=== PATIENT | female | born 1960 | race Caucasian/White ===

== ENCOUNTER 2019-10-26 09:38 | Emergency (ER) | payer SELFPAY ==
[~2019-10-26] VITALS: Ht 160 cm; Wt 71.7 kg
[2019-10-26 09:45] VITALS: BP 114/67
[2019-10-26 10:24] LABS: BASOPHILS % (AUTO) 0.6 % (0-1); EOSINOPHILS # (AUTO) 0.1 X10'3 (0-0.9); EOSINOPHILS % (AUTO) 1.3 % (0-6); HEMATOCRIT 38.5 % (35.0-45.0); LYMPHOCYTES % (AUTO) 32.3 % (21-51); MEAN CORPUSCULAR HEMOGLOBIN 29.8 PG (27.0-31.0); MEAN CORPUSCULAR HGB CONC 33.7 g/dL (33.0-36.5); MEAN CORPUSCULAR VOLUME 88.3 FL (78-98); MONOCYTES # (AUTO) 0.6 X10'3 (0-0.9); MONOCYTES % (AUTO) 9.3 % (2-12); NEUTROPHILS # (AUTO) 3.6 X10'3 (1.8-7.7); NEUTROPHILS % (AUTO) 56.5 % (42-75); PLATELET COUNT 318 X10'3 (140-440); RED BLOOD COUNT 4.36 X10'6 (4.20-5.60); WHITE BLOOD COUNT 6.3 X10'3 (4.5-11.0)
[2019-10-26] MEDS ORDERED: sucralfate 1 gm tablet PO ONE (10:35)
[2019-10-26] MEDS ORDERED: LIDOcaine Viscous 15ml cup MM ONE (10:35)
[2019-10-26] MEDS ORDERED: mag hydrox/Alum hydrox/simeth 30ml oral suspension PO ONE (10:35)
[2019-10-26 10:37] LABS: ALANINE AMINOTRANSFERASE 52 U/L (12-78); ALBUMIN 3.9 G/DL (3.4-5.0); ALBUMIN/GLOBULIN RATIO 1.1 (1.1-1.5); ALKALINE PHOSPHATASE 76 IU/L (46-116); ANION GAP 6 (8-16); ASPARTATE AMINO TRANSFERASE 34 U/L (10-37); BILIRUBIN,TOTAL 0.3 MG/DL (0.1-1.0); BLOOD UREA NITROGEN 15 MG/DL (7-18); BUN/CREATININE RATIO 16.9 (6.6-38.0); CALCIUM 8.5 MG/DL (8.5-10.1); CHLORIDE 108 MMOL/L (99-107); CREATININE 0.89 MG/DL (0.40-0.90); GLUCOSE 98 MG/DL (70-104); POTASSIUM 3.5 MMOL/L (3.5-5.1); SODIUM 143 MMOL/L (135-145); TOTAL PROTEIN 7.6 G/DL (6.4-8.2); eGFR 65 ML/MIN
[2019-10-26] MEDS ORDERED: PANT20TA2 PO (11:00)
== END 2019-10-26 11:28 | disposition home or self-care (01) ==
LOC: ER 09:40
DX: R10.13 Epigastric pain (principal); R07.89 Other chest pain; Z79.899 Other long term (current) drug therapy
CPT/HCPCS: 36415; 71045; 80053; 84484; 85025; 93005; 99284

== ENCOUNTER 2025-03-18 07:36 | Emergency (ER) | payer MEDICARE ==
[~2025-03-18] VITALS: Ht 160 cm; Wt 73.3 kg
[~2025-03-18 07:36] MED LIST: PANT20TA2 PO
--- NOTE | 2025-03-18 07:48 | ELECTROCARDIOGRAPH REPORT ---
[facility] Test Date: 2025-03-18 Test Time: 07:46:43 Pat Name: DEVIKA MORROW Department: [facility] Patient ID: [facility]-[id number] Room: Gender: F [employer] Operator: : 1960 Requested By: LILIBETH SPRINGER Order Number: [id number] Reading MD: Dr. Venkata Godwin Measurements Intervals [place] Rate: 74 P: 57 MS: 167 QRS: 4 QRSD: 110 T: 26 QT: 418 QTc: 464 Interpretive Statements Sinus rhythm Low voltage, precordial leads RSR' in V1 or V2, right VCD or RVH Borderline T abnormalities, lateral leads Electronically Signed On 03-21-2025 19:04:[address] Venkata Godwin Please click the below link to view image of tracing.
[2025-03-18 08:09] LABS: BASOPHILS # (AUTO) 0.1 X10'3 (0-0.2); BASOPHILS % (AUTO) 0.8 % (0-1); EOSINOPHILS # (AUTO) 0.2 X10'3 (0-0.9); EOSINOPHILS % (AUTO) 2.4 % (0-6); HEMOGLOBIN 13.1 g/dl (12.0-16.0); LYMPHOCYTES # (AUTO) 2.6 X10'3 (1.1-4.8); LYMPHOCYTES % (AUTO) 37.4 % (21-51); MEAN CORPUSCULAR HGB CONC 33.6 g/dL (33.0-36.5); MEAN CORPUSCULAR VOLUME 86.4 FL (78-98); MEAN PLATELET VOLUME 6.9 FL (7.4-10.4); MONOCYTES # (AUTO) 0.8 X10'3 (0-0.9); MONOCYTES % (AUTO) 11.5 % (2-12); NEUTROPHILS # (AUTO) 3.3 X10'3 (1.8-7.7); NEUTROPHILS % (AUTO) 47.9 % (42-75); PLATELET COUNT 351 X10'3 (140-440); RED BLOOD COUNT 4.51 X10'6 (4.20-5.60); WHITE BLOOD COUNT 6.9 X10'3 (4.5-11.0)
[2025-03-18 08:23] LABS: ALANINE AMINOTRANSFERASE 32 U/L (12-78); ALBUMIN 3.9 G/DL (3.4-5.0); ALBUMIN/GLOBULIN RATIO 1.1 (1.1-1.5); ALKALINE PHOSPHATASE 93 IU/L (46-116); ANION GAP 6 (8-16); ASPARTATE AMINO TRANSFERASE 23 U/L (10-37); BILIRUBIN,TOTAL 0.4 MG/DL (0.1-1.0); BLOOD UREA NITROGEN 13 MG/DL (7-18); BUN/CREATININE RATIO 15.9 (10.0-20.0); CALCIUM 8.7 MG/DL (8.5-10.1); CHLORIDE 106 MMOL/L (99-107); CREATININE 0.82 MG/DL (0.40-0.90); GLUCOSE 118 MG/DL (70-104); SODIUM 140 MMOL/L (135-145); TOTAL CARBON DIOXIDE 28.3 MMOL/L (24-32); TOTAL PROTEIN 7.3 G/DL (6.4-8.2); eCRCL 56 ML/MIN; eGFR 70 ML/MIN
[2025-03-18 08:30] LABS: PRO BRAIN NATRIURETIC PEPTIDE < 30 PG/ML (0-125)
--- NOTE | 2025-03-18 08:35 | RADIOLOGY REPORT ---
CHEST RADIOGRAPH Indication: CP Technique: Single frontal view of the chest was obtained COMPARISON: None FINDINGS: Lines and Tubes: None Lungs: Clear Pleura: No effusion. No pneumothorax. Cardiomediastinal contours: Unremarkable Bones: Unremarkable IMPRESSION: No acute disease.
[2025-03-18 08:46] VITALS: BP 126/80; PULSE 76; RESP 13; TEMP 98.7; O2SAT 97
--- NOTE | 2025-03-18 08:56 | Physician Documentation ---
History of Present Illness ~ Chief Complaint: Palpitations Stated Complaint: PALPATATIONS Time Seen by MD: 07:52 Mode of Arrival: POV HPI 65 year old female with palpitations for several days, intermittently and at different times of day. Also accompanied by some chest heaviness. Denies fever, cough, N/V/D, urinary symptoms, cardiac history, smoking history, DVT/PE history. Medication Reconciliation Allergies: Coded Allergies: No Known Allergies (Unverified , 10/26/19) Scheduled Pantoprazole Sodium (Protonix), 1 TAB PO DAILY Past Medical History Past Medical History: No Pertinent History Past Surgical History: noncontributory Alcohol Use: None Lives In: Home Review of Systems All Other Systems at this time: Reviewed and Negative Physical Exam Vital Signs: RN Vital Signs have been reviewed: Yes, Temperature: 98.7, Source: Oral, Heart Rate: 76, Respiratory Rate: 13, BP: 126/80, Pulse Oximetry: 97, Weight: 73.300 Oxygen Flow Rate: 0 Physical Exam HEENT: PERRL, moist oral mucosa, EOMI Pulmonary: No respiratory distress CTAB Cardiac: RRR, no murmur, rub or gallop MSK: no deformity Skin: w/d/i, no rash Neuro: alert, nonfocal Psych: normal affect Progress Results/Orders Results/Orders Orders - LILIBETH SPRINGER MD Chest,Single View (03/18/25 07:42) Monitor (03/18/25 07:42) Saline Lock (03/18/25 07:42) Oxygen (03/18/25 07:42) Completed Orders - LILIBETH SPRINGER MD Electrocardiogram (03/18/25 07:37) Chest,Single View (03/18/25 07:42) Cbc/Diff (03/18/25 07:42) PBNP (03/18/25 07:42) CMP (03/18/25 07:42) Hs Troponin I W Calculations (03/18/25 07:42) Vital Signs 03/18/25 03/18/25 03/18/25 07:40 07:57 08:46 Temp 98.7 98.7 Pulse 74 76 Resp 16 12 13 B/P (MAP) 132/84 126/80 (95) Pulse Ox 99 97 O2 Flow Rate 0 0 Laboratory Tests Test 03/18/25 07:54 03/18/25 07:57 White Blood Count 6.9 Red Blood Count 4.51 Hemoglobin 13.1 Hematocrit 39.0 Mean Corpuscular Volume 86.4 Mean Corpuscular Hemoglobin 29.0 Mean Corpuscular Hemoglobin Concent 33.6 Red Cell Distribution Width 15.0 H Platelet Count 351 Mean Platelet Volume 6.9 L Neutrophils (%) (Auto) 47.9 Lymphocytes (%) (Auto) 37.4 Monocytes (%) (Auto) 11.5 Eosinophils (%) (Auto) 2.4 Basophils (%) (Auto) 0.8 Neutrophils # (Auto) 3.3 Lymphocytes # (Auto) 2.6 Monocytes # (Auto) 0.8 Eosinophils # (Auto) 0.2 Basophils # (Auto) 0.1 CBC Comment Troponin I High Sensitivity 5 Sodium Level 140 Potassium Level 4.0 Chloride Level 106 Carbon Dioxide Level 28.3 Anion Gap 6 L Blood Urea Nitrogen 13 Creatinine 0.82 Estimated GFR/1.73 m2 70 BUN/Creatinine Ratio 15.9 Glucose Level 118 H Calcium Level 8.7 Total Bilirubin 0.4 Aspartate Amino Transf (AST/SGOT) 23 Alanine Aminotransferase (ALT/SGPT) 32 Alkaline Phosphatase 93 Pro-B-Type Natriuretic Peptide < 30 Total Protein 7.3 Albumin 3.9 Globulin 3.4 Albumin/Globulin Ratio 1.1 Chemistry Comments EKG/XRAY/CT/US/VASC/MRI EKG : Indication: other EKG Rate: 74 EKG: NSR EKG Blocks: none Additional Comment my interpretation: normal sinus rhythm, no STEMI criteria, no dysrhythmia Chest X-Ray : Interpreted By: self Views: 1 VIEW Indication: shortness of breath Lungs: normal Mediastinum: normal Ribs/Bones: normal Abdomen: normal Impression: no acute disease Medical Decision Making Findings 65 year old female with palpitations but benign exam, vitals. Workup was similarly benign with no dysrhythmias, evidence of STEMI, frequent PVCs or PACs, no evidence of atrial fibrillation, and negative chest xray. OFFERED ADMISSION FOR TELEMONITORING BUT PATIENT ADAMANTLY REFUSED AFTER THOROUGH DISCUSSION OF RISKS/BENEFITS. Counseled follow up with PCP and possible holter monitoring, return precautions. Differential Dx:Considerations: Include: angina / MS, atrial fibrillation, atrial flutter, PACs, PSVT, sinus tachycardia, PVCs, torsades de pointes, ventricular fibrillation, ventricular tachycardia Departure Disposition: HOME / SELF CARE / HOMELESS Impression: Primary Impression: Palpitations Discharge Instructions: Palpitations, [id number] Referrals: NO PRIMARY CARE PROVIDER (PCP) Education Educated: Patient, Family Educated regarding: diagnosis, treatment, prognosis, need for follow up Signature Scribe Signature: . Attestation: . LILIBETH SPRINGER MD Mar 18, 2025 08:56
== END 2025-03-18 09:15 | disposition home or self-care (01) ==
LOC: ER 07:37
DX: R00.2 Palpitations (principal); Z79.899 Other long term (current) drug therapy
CPT/HCPCS: 36415; 71045; 80053; 83880; 84484; 85025; 93005; 99285